=== PATIENT | male | born 1950 | race African-American/Black ===

== ENCOUNTER 2017-09-10 20:46 | Emergency (ER) | payer MEDICARE ==
[2017-09-10] MEDS ORDERED: HYDROmorphone INJ* 2 MG/ML CARPUJECT SYRINGE IV SLOW PU ONE (21:41)
[2017-09-10] MEDS ORDERED: Ondansetron INJ* 2 MG/ML VIAL IV ONE (21:41)
[2017-09-10] MEDS ORDERED: NS 0.9% 1000 ML* 1,000 ML IV ONE (21:42)
[2017-09-10] MEDS ORDERED: HYDROmorphone INJ* 1 MG/ML CARPUJECT SYRINGE ONE (21:42)
[2017-09-10 21:49] LABS: Hematocrit 42 % (42-52); Hemoglobin 14.5 g/dl (14.0-18.0); Mean Corpuscular HGB Conc 35 g/dl (31-36); Mean Corpuscular Hemoglobin 31 pg (27-31); Mean Corpuscular Volume 89 fL (80-94); Mean Platelet Volume 8 um3 (7.4-10.4); Red Blood Count 4.73 10^6/ul (4.0-5.4); Red Cell Distribution Width 13 % (10.5-15); White Blood Count 9.8 10^3/ul (3.5-10.8)
[2017-09-10] MEDS ORDERED: Acetaminophen TAB* 325 MG PO ONE (21:57)
[2017-09-10 21:59] LABS: Albumin 4.2 g/dL (3.2-5.2); BUN/Creatinine Ratio 10.5 (8-20); C Reactive Protein 3.57 mg/L (< 5.00); Calcium 9.6 mg/dL (8.6-10.3); EGFR African American 75.2 (>60); EGFR Non-African American 58.5 (>60); Globulin 3.2 g/dL (2-4); Potassium 3.5 mmol/L (3.5-5.0); Total Bilirubin 1.8 mg/dL (0.2-1.0); Total Protein 7.4 g/dL (6.4-8.9)
[2017-09-10] MEDS ORDERED: Iohexol 300* (CONTRAST) 10 ML SDV IV ONE (22:11)
[2017-09-11 00:51] LABS: Urine Bacteria 1+ (Absent); Urine Bilirubin Negative (Negative); Urine Glucose Negative (Negative); Urine Nitrite Negative (Negative)
[2017-09-11] MEDS ORDERED: Levofloxacin TAB* 500 MG PO ONE (01:56)
[2017-09-11 02:13] VITALS: BP 109/66
--- NOTE | 2017-09-11 04:36 | ED ---
Una Terrazas Rebecca, scribed for Basil Raymond on 09/10/17 at 2137 . Abdominal Pain/Male - HPI Summary HPI Summary: Pt is a 67 y/o M BIBA who presents to ED c/o diffuse abdominal pain. Pain began suddenly tonight and is currently severe, ranked 8/10. Sx aggravated and alleviated by nothing. Additionally c/o chills, fever and 1 episode of vomiting yellow liquid at 1999. No PSHx on the abdomen. - History of Current Complaint Chief Complaint: EDAbdPain Stated Complaint: FEVER Time Seen by Provider: 09/10/17 21:22 Hx Obtained From: Patient, Family/Manager Fiber - Onset/Duration: Still Present Severity Currently: Severe Pain Intensity: 8 Pain Scale Used: 0-10 Numeric Location: Diffuse Radiates: No Aggravating Factor(s): Nothing Alleviating Factor(s): Nothing Associated Signs And Symptoms: Positive: Fever, Vomiting - Allergies/Home Medications Allergies/Adverse Reactions: Allergies Allergy/AdvReac Type Severity Reaction Status Date / Time No Known Allergies Allergy Verified 09/10/17 22:02 PMH/Surg Hx/FS Hx/Imm Hx Endocrine/Hematology History: Denies: Hx Diabetes Cardiovascular History: Denies: Hx Coronary Artery Disease, Hx Hypertension Opthamlomology History: Reports: Hx Glaucoma Infectious Disease History: No Infectious Disease History: Denies: Traveled Outside the [place] in Last 30 Days - Family History Known Family History: Positive: Hypertension - Social History Alcohol Use: None Substance Use Type: Reports: None Smoking Status (MU): Never Smoked Tobacco Review of Systems Positive: Fever, Chills Positive: Abdominal Pain, Vomiting All Other Systems Reviewed And Are Negative: Yes Physical Exam - Summary Physical Exam Summary: Appearance: Well appearing, no pain distress Skin: warm, dry, reflects adequate perfusion Head/face: normal Eyes: EOMI, VESNA ENT: normal Neck: supple, non-tender Respiratory: CTA, breath sounds present Cardiovascular: RRR, pulses symmetrical Abdomen: diffuse abdominal tenderness, soft Bowel: present Musculoskeletal: normal, strength/ROM intact Neuro: normal, sensory motor intact, A&Ox3 Triage Information Reviewed: Yes Vital Signs On Initial Exam: Initial Vitals Temp Pulse Resp BP Pulse Ox 101.2 F 123 18 136/73 99 09/10/17 21:21 09/10/17 21:21 09/10/17 21:21 09/10/17 21:21 09/10/17 21:21 Vital Signs Reviewed: Yes - [place] Coma Scale Coma Scale Total: 15 Diagnostics - Vital Signs Vital Signs Temp Pulse Resp BP Pulse Ox 09/10/17 21:21 101.2 F 123 18 136/73 99 - Laboratory Lab Results: Lab Results 09/10/17 09/10/17 09/10/17 Range/Units 21:30 21:30 21:30 WBC 9.8 (3.5-10.8) 10^3/ul RBC 4.73 (4.0-5.4) 10^6/ul Hgb 14.5 (14.0-18.0) g/dl Hct 42 (42-52) % MCV 89 (80-94) fL MCH 31 (27-31) pg MCHC 35 (31-36) g/dl RDW 13 (10.5-15) % Plt Count 191 (150-450) 10^3/ul MPV 8 (7.4-10.4) um3 Neut % (Auto) 94.1 H (38-83) % Lymph % (Auto) 3.7 L (25-47) % Baldwin % (Auto) 1.8 (1-9) % Eos % (Auto) 0.1 (0-6) % Baso % (Auto) 0.3 (0-2) % Absolute Neuts (auto) 9.2 H (1.5-7.7) 10^3/ul Absolute Lymphs (auto) 0.4 L (1.0-4.8) 10^3/ul Absolute Monos (auto) 0.2 (0-0.8) 10^3/ul Absolute Eos (auto) 0 (0-0.6) 10^3/ul Absolute Basos (auto) 0 (0-0.2) 10^3/ul Absolute Nucleated RBC 0 10^3/ul Nucleated RBC % 0 INR (Anticoag Therapy) 1.03 (0.89-1.11) APTT 22.4 L (26.0-36.3) seconds Sodium 136 (133-145) mmol/L Potassium 3.5 (3.5-5.0) mmol/L Chloride 104 (101-111) mmol/L Carbon Dioxide 16 L (22-32) mmol/L Anion Gap 16 H (2-11) mmol/L BUN 13 (6-24) mg/dL Creatinine 1.24 H (0.67-1.17) mg/dL Est GFR ( Amer) 75.2 (>60) Est GFR (Non-Af Amer) 58.5 (>60) BUN/Creatinine Ratio 10.5 (8-20) Glucose 119 H (70-100) mg/dL Calcium 9.6 (8.6-10.3) mg/dL Total Bilirubin 1.80 H (0.2-1.0) mg/dL AST 20 (13-39) U/L ALT 13 (7-52) U/L Alkaline Phosphatase 62 (34-104) U/L Troponin I 0.00 (<0.04) ng/mL C-Reactive Protein 3.57 (< 5.00) mg/L Total Protein 7.4 (6.4-8.9) g/dL Albumin 4.2 (3.2-5.2) g/dL Globulin 3.2 (2-4) g/dL Albumin/Globulin Ratio 1.3 (1-3) Urine Color Urine Appearance Urine pH (5-9) Ur Specific Squire (1.010-1.030) Urine Protein (Negative) Urine Ketones (Negative) Urine Blood (Negative) Urine Nitrate (Negative) Urine Bilirubin (Negative) Urine Urobilinogen (Negative) Ur Leukocyte Esterase (Negative) Urine WBC (Auto) (Absent) Urine RBC (Auto) (Absent) Urine Bacteria (Absent) Urine Glucose (Negative) 09/10/17 Range/Units 23:53 WBC (3.5-10.8) 10^3/ul RBC (4.0-5.4) 10^6/ul Hgb (14.0-18.0) g/dl Hct (42-52) % MCV (80-94) fL MCH (27-31) pg MCHC (31-36) g/dl RDW (10.5-15) % Plt Count (150-450) 10^3/ul MPV (7.4-10.4) um3 Neut % (Auto) (38-83) % Lymph % (Auto) (25-47) % Baldwin % (Auto) (1-9) % Eos % (Auto) (0-6) % Baso % (Auto) (0-2) % Absolute Neuts (auto) (1.5-7.7) 10^3/ul Absolute Lymphs (auto) (1.0-4.8) 10^3/ul Absolute Monos (auto) (0-0.8) 10^3/ul Absolute Eos (auto) (0-0.6) 10^3/ul Absolute Basos (auto) (0-0.2) 10^3/ul Absolute Nucleated RBC 10^3/ul Nucleated RBC % INR (Anticoag Therapy) (0.89-1.11) APTT (26.0-36.3) seconds Sodium (133-145) mmol/L Potassium (3.5-5.0) mmol/L Chloride (101-111) mmol/L Carbon Dioxide (22-32) mmol/L Anion Gap (2-11) mmol/L BUN (6-24) mg/dL Creatinine (0.67-1.17) mg/dL Est GFR ( Amer) (>60) Est GFR (Non-Af Amer) (>60) BUN/Creatinine Ratio (8-20) Glucose (70-100) mg/dL Calcium (8.6-10.3) mg/dL Total Bilirubin (0.2-1.0) mg/dL AST (13-39) U/L ALT (7-52) U/L Alkaline Phosphatase (34-104) U/L Troponin I (<0.04) ng/mL C-Reactive Protein (< 5.00) mg/L Total Protein (6.4-8.9) g/dL Albumin (3.2-5.2) g/dL Globulin (2-4) g/dL Albumin/Globulin Ratio (1-3) Urine Color Yellow Urine Appearance Cloudy Urine pH 6.0 (5-9) Ur Specific Squire 1.032 H (1.010-1.030) Urine Protein Negative (Negative) Urine Ketones 1+ H (Negative) Urine Blood 3+ H (Negative) Urine Nitrate Negative (Negative) Urine Bilirubin Negative (Negative) Urine Urobilinogen Positive H (Negative) Ur Leukocyte Esterase 1+ H (Negative) Urine WBC (Auto) 2+(11-20/hpf) H (Absent) Urine RBC (Auto) 3+(>10/hpf) H (Absent) Urine Bacteria 1+ H (Absent) Urine Glucose Negative (Negative) Result Diagrams: 09/10/17 21:30 09/10/17 21:30 Lab Statement: Any lab studies that have been ordered have been reviewed, and results considered in the medical decision making process. - Radiology CXR Xray Interpretation: No Acute Changes Radiology Interpretation Completed By: ED Physician - CT CT Abd/Pel CT Interpretation: No Acute Changes - 1.Unremarkable appendix without appendicitis. 2. No bowel obstruction, significant ascites or free air. 2. Kidneys enhance symmetrically and excrete contrast symmetrically without hydronephrosis. 4. Nonspecific dilatation of the common duct up to 1 cm. 5. Physiologic distention of the gallbladder without calcified gallstone. 6. The pancreatic duct is prominent measuring 3-4 mm. 7. Small fat-containing left inguinal hernia. 8. Enlarged prostate gland. 9. Several small low attenuation hepatic structures are too small to characterize. ED physician reviewed radiology report and agrees. CT Interpretation Completed By: Radiologist - EKG 2201 Cardiac Rate: NL - 96 bpm EKG Rhythm: Sinus Rhythm EKG Interpretation: No acute changes Re-Evaluation - Re-Evaluation First Eval Re-Evaluation Time: 01:55 Comment: Discussed results and D/C plan with the pt. Abdominal Pain Fem Course/Dx - Course Assessment/Plan: Pt is a 67 y/o M BIBA who presents to ED c/o sudeon onset diffuse abdominal pain since tonight that is currently severe, ranked 8/10. Additionally c/o chills, fever and 1 episode of vomiting yellow liquid at 2000. No PSHx on the abdomen. CXR and CT Abd/Pel reveal no acute findings. EKG is sinus rhythm with no acute changes. Troponin of 0.00. UA positive for UTI. In the ED course, pt received Dilaudid, Levaquin, Zofran, Tylenol and fluids. Pt will be D/C to home with Dx of abdominal pain and UTI with Rx for Motrin and Levaquin and a follow up with his PCP. He understands and agrees. Pt medications reviewed. - Diagnoses Differential Diagnosis/HQI/PQRI: Appendicitis, Diverticulitis, Pancreatitis, Prostatitis, Renal Colic, Ureteral Stone, Urinary Tract Infection Provider Diagnoses: Abdominal pain, UTI (urinary tract infection) Discharge - Discharge Plan Condition: Stable Disposition: HOME Prescriptions: Ibuprofen TAB* [Motrin TAB* 600 MG] 600 mg PO Q8H PRN #20 tab MDD 3 PRN Reason: Pain Levofloxacin TAB* [Levaquin 500 Tab*] 500 mg PO DAILY #9 tab Patient Education Materials: Acute Abdominal Pain (ED), Urinary Tract Infection in Men (ED) Referrals: [facility] [Outside] - 3 Days Additional Instructions: RETURN TO ED FOR ANY RETURNING OR WORSENING SYMPTOMS. The documentation as recorded by the Una toribio Rebecca accurately reflects the service I personally performed and the decisions made by Mandi corrales Emmanuel.
--- NOTE | 2017-09-11 07:41 | RAD ---
INDICATION: Abdominal pain. COMPARISON: There are no prior studies available for comparison. TECHNIQUE: A portable view of the chest was obtained. FINDINGS: Cardiac and mediastinal contours appear to be within normal limits. The lungs are clear. No pleural effusion is seen. No free intraperitoneal air is seen. IMPRESSION: NO EVIDENCE FOR ACUTE DISEASE.
--- NOTE | 2017-09-11 07:56 | RAD ---
INDICATION: Diffuse abdominal pain. Vomiting. Evaluate for acute appendicitis COMPARISON: None TECHNIQUE: Axial source images were obtained from the hemidiaphragms to the symphysis pubis following administration of intravenous contrast only. 100 mL of Omnipaque 300 was administered coronal and sagittal reconstructed images were acquired. By report the patient could not tolerate oral contrast. Lung bases: The lung bases are clear. Liver: The liver is normal in size. There are multiple subcentimeter, low-density hepatic lesions likely representing hemangiomas. There is no ductal dilatation. Gallbladder: There are no calcified gallstones. There is no evidence of wall thickening or pericholecystic fluid. Spleen: The spleen is normal in size. There are no masses. Pancreas: There is no focal pancreatic mass or ductal dilatation. Adrenal glands: There is no evidence of adrenal mass. Kidneys: The kidneys are normal in size and position. There are prompt nephrograms and there is prompt excretion bilaterally. There are no renal parenchymal masses. There is no evidence of nephrolithiasis. Adenopathy: There is no evidence of adenopathy by size criteria. Fluid collections: There are no free or localized fluid collections. Vessels:There are no significant atherosclerotic changes involving the aorta. There is no focal aneurysm. The iliac vessels are normal in caliber. The IVC appears normal. GI tract: There are no acute CT bowel findings. There is no obstruction. The stomach and small bowel appear normal. The lower GI tract is normal. The cecum, ileocecal valve, and terminal ileum appear normal. The appendix is visualized and appear normal. Pelvic organs: The prostate and seminal vesicles appear normal Bladder: There are no bladder masses. Abdominal and pelvic soft tissues: The extraperitoneal abdominal and pelvic soft tissues appear normal.. Osseous structures: There are no acute osseous findings. Other: None IMPRESSION: 1. Small low index of suspicion hepatic hypodensities technically too small to characterize but likely related to hemangiomas. 2. Normal appendix. No specific CT abnormalities of the bowel on noncontrast evaluation. 3. Mild pancreatic ductal prominence without focal pancreatic abnormality or peripancreatic inflammatory change.
--- NOTE | 2017-09-12 12:34 | PN ---
Progress Note - Progress Note Date of Service: 09/10/17 Note: patient treated on doxycycline at d/c. aerobic/anaerobic preliminary culture bottle show gram negative bacilli will wait for further culture results.
--- NOTE | 2017-09-12 12:35 | PN ---
Progress Note - Progress Note Date of Service: 09/10/17 Note: urine culture preliminary results showed >100,000 of e coli patient was treated with doxycycline prior to discharge. will wait for final urine culture susceptibility results. no further action required at this time.
== END 2017-09-11 02:24 | disposition home or self-care (01) ==
LOC: ED 20:46
DX: R10.9 Unspecified abdominal pain (principal); N39.0 Urinary tract infection, site not specified; B96.20 Unspecified Escherichia coli [E. coli] as the cause of diseases classified elsewhere
CPT/HCPCS: 36415; 71010; 74177; 80053; 81003; 81015; 84484; 85025; 85610; 85730; 86140; 87040; 87077; 87086; 87186; 93005; 96360; 96374; 96375; 99285; A9270-GY; J1170; J2405; Q9967